=== PATIENT | male | born 1975 | race Caucasian/White ===

== ENCOUNTER 2018-12-27 06:32 | Day surgery (SDC) | payer MEDICAID ==
[~2018-12-27] VITALS: Ht 185.4 cm; Wt 86.4 kg
[2018-12-27 06:40] VITALS: BP 148/74
[2018-12-27] MEDS ORDERED: MIDAZolam 5mg/5ml vial ONE (06:51)
[2018-12-27] MEDS ORDERED: fentaNYL/PF 50MCG/1 ML 2ML syringe ONE (06:51)
[2018-12-27] MEDS ORDERED: LIDOcaine Viscous 15ml cup ONE (06:52)
[2018-12-27] MEDS ORDERED: NO HOME MEDS (06:54)
[2018-12-27 08:40] VITALS: BP 90/58
[2018-12-27 08:50] VITALS: BP 94/57
[2018-12-27 09:00] VITALS: BP 94/54
[2018-12-27 09:10] VITALS: BP 99/63
== END 2018-12-27 09:30 | disposition home or self-care (01) ==
LOC: GI LAB 06:32
PROVIDERS: ATTEND Internal Medicine Gastroenterology
DX: R10.84 Generalized abdominal pain (principal); R10.13 Epigastric pain; R10.10 Upper abdominal pain, unspecified; D12.2 Benign neoplasm of ascending colon; K29.50 Unspecified chronic gastritis without bleeding; K29.80 Duodenitis without bleeding
CPT/HCPCS: 43239; 45385; 99152; 99153; C1773; J2250; J3010; J7040; A4620